=== PATIENT | male | born 1960 | race Caucasian/White ===

== ENCOUNTER 2023-01-04 21:53 | Inpatient (IN) | payer OTHER ==
[2023-01-04 22:29] VITALS: BMI 23.8
[2023-01-05 01:31] LABS: BASO % 0.3 % (0-2.0); EOS % 5.9 % (0-4.5); HEMATOCRIT 26.9 % (35.4-49); HEMOGLOBIN 8.9 GM/dL (11.7-16.9); MCH 29.2 pg (25.7-33.7); MEAN CELL VOLUME 88.4 fl (80-96); MEAN PLT VOLUME 6.7 fl (7.5-11.1); MONO % 7.3 % (3.8-10.2); NEUT % 59.5 % (42.8-82.8); PLATELET COUNT 163 10^3/uL (134-434); RBC 3.04 M/mm3 (4.00-5.60); RDW 13.3 % (11.9-15.9); WHITE BLOOD COUNT 6.2 K/mm3 (4.0-10.0)
[2023-01-05 01:43] LABS: EPI CELLS 9 /uL (0-25.1); HYALINE CASTS 1 /uL (0-3.1); PH,URINE 5.5 (5.0-8.0); URINE APPEARANCE CLEAR; URINE BACTERIA 5 /uL (0-1359); URINE BILIRUBIN NEGATIVE (NEGATIVE); URINE COLOR YELLOW; URINE GLUCOSE (UA) NEGATIVE (NEGATIVE); URINE KETONE NEGATIVE (NEGATIVE); URINE LEUK ESTERASE NEGATIVE (NEGATIVE); URINE NITRITE NEGATIVE (NEGATIVE); URINE PROTEIN 3+ (NEGATIVE); URINE RBC 47 /uL (0-23.9); URINE UROBILINOGEN 0.2 mg/dL (0.2-1.0); URINE WBC 26 /uL (0-25.8)
[2023-01-05 01:47] LABS: CHLORIDE 110 mmol/L (98-107); SODIUM 139 mmol/L (136-145)
[2023-01-05 01:49] LABS: ANION GAP 6 MMOL/L (8-16); CO2 22 mmol/L (21-32); GLUCOSE,RANDOM 92 mg/dL (74-106)
[2023-01-05 01:50] LABS: ALBUMIN 3.4 g/dl (3.4-5.0); BLOOD UREA NITROGEN 97.3 mg/dL (7-18)
[2023-01-05 01:52] LABS: SGPT/ALT 28 U/L (13-61)
[2023-01-05 01:53] LABS: SGOT/AST 16 U/L (15-37)
[2023-01-05 01:54] LABS: BILIRUBIN,TOTAL 0.6 mg/dL (0.2-1); TOT PROT 7.1 g/dl (6.4-8.2)
[2023-01-05 01:55] LABS: ALK PHOS 105 U/L (45-117)
[2023-01-05 02:15] LABS: CALCIUM 6.1 mg/dL (8.5-10.1)
[2023-01-05] MEDS ORDERED: CALCIUM CHLORIDE 10% 1 GM/10 ML *VIAL IVPB ONE (02:37)
[2023-01-05] MEDS ORDERED: ALBUTEROL SO4 0.083% IH SOL 2.5 MG/3 ML VIAL.NEB. NEB ONE ×2 (02:39→02:43)
[2023-01-05] MEDS ORDERED: CALCIUM CHLORIDE 1 GM/10 ML *DISP.SYRIN ONE (02:43)
[2023-01-05] MEDS ORDERED: CALCIUM GLUCONATE 10% - 1,000 MG/10 ML VIAL IVPB ONE (02:44)
[2023-01-05] MEDS ORDERED: CALCIUM GLUC IN NACL, ISO-OSM 1 GM/50 ML BAG IVPB ONE (02:44)
[2023-01-05] MEDS ORDERED: SODIUM ZIRCONIUM CYCLOSILICATE (LOKELMA) 5 GM PACKET ONE (02:52)
[2023-01-05] MEDS ORDERED: SODIUM ZIRCONIUM CYCLOSILICATE (LOKELMA) 5 GM PACKET PO ONE (02:55)
[2023-01-05] MEDS ORDERED: LACTATED RINGERS SOLUTION 1000 ML INFUS.BAG IV ONE (09:16)
[2023-01-05] MEDS ORDERED: SODIUM ZIRCONIUM CYCLOSILICATE (LOKELMA) 10 GM PACKET PO SCH (10:00)
[2023-01-05] MEDS ORDERED: SODIUM CHLORIDE 250 ML IV PRN (10:53)
[2023-01-05] MEDS ORDERED: LORazepam 2 MG/ML SDV VIAL IVPUSH ONE (10:56)
[2023-01-05 12:00] LABS: CHLORIDE 109 mmol/L (98-107); SODIUM 138 mmol/L (136-145)
[2023-01-05 12:02] LABS: ANION GAP 8 MMOL/L (8-16); CO2 22 mmol/L (21-32); GLUCOSE,RANDOM 89 mg/dL (74-106)
[2023-01-05 12:05] LABS: SGOT/AST 17 U/L (15-37); SGPT/ALT 23 U/L (13-61)
[2023-01-05 12:08] LABS: ALK PHOS 97 U/L (45-117); BILIRUBIN,TOTAL 0.6 mg/dL (0.2-1); TOT PROT 6.4 g/dl (6.4-8.2)
[2023-01-05 12:18] LABS: CALCIUM 6.2 mg/dL (8.5-10.1); CREATININE 12.3 mg/dL (0.55-1.3)
[2023-01-05] MEDS: HEPARIN NA (PORCINE) 5,000 UNITS/ML 1ML VIAL SQ SCH (22:16)
[2023-01-05] MEDS: LABETALOL HCL 200 MG TABLET (FP) PO SCH (22:16)
[2023-01-06] MEDS ORDERED: ACETAMINOPHEN 325 MG TABLET (FP) PO ONE (01:25)
[2023-01-06] MEDS: hydrALAZINE HCL 25 MG TABLET (FP) PO SCH ×3 (06:20→21:07)
[2023-01-06 08:56] LABS: BASO % 0.5 % (0-2.0); EOS % 4.6 % (0-4.5); HEMATOCRIT 24.5 % (35.4-49); HEMOGLOBIN 8.3 GM/dL (11.7-16.9); LYMPH % 30.2 % (8-40); MCHC 33.7 g/dl (32.0-35.9); MEAN CELL VOLUME 89.2 fl (80-96); MEAN PLT VOLUME 7.2 fl (7.5-11.1); MONO % 8.4 % (3.8-10.2); NEUT % 56.3 % (42.8-82.8); PLATELET COUNT 165 10^3/uL (134-434); RBC 2.75 M/mm3 (4.00-5.60); RDW 12.8 % (11.9-15.9); WHITE BLOOD COUNT 5.6 K/mm3 (4.0-10.0)
[2023-01-06 09:15] LABS: CHLORIDE 107 mmol/L (98-107); SODIUM 140 mmol/L (136-145)
[2023-01-06] MEDS: LABETALOL HCL 200 MG TABLET (FP) PO SCH ×2 (09:16→21:07)
[2023-01-06] MEDS: CLOPIDOGREL BISULFATE 75 MG TABLET (FP) PO SCH (09:16)
[2023-01-06] MEDS: TAMSULOSIN HCL 0.4 MG CAP PO SCH (09:16)
[2023-01-06] MEDS: HEPARIN NA (PORCINE) 5,000 UNITS/ML 1ML VIAL SQ SCH ×2 (09:16→21:07)
[2023-01-06 09:17] LABS: ALBUMIN 2.9 g/dl (3.4-5.0); ANION GAP 5 MMOL/L (8-16); CO2 27 mmol/L (21-32); GLUCOSE,RANDOM 85 mg/dL (74-106)
[2023-01-06 09:20] LABS: SGOT/AST 14 U/L (15-37); SGPT/ALT 22 U/L (13-61)
[2023-01-06 09:22] LABS: BILIRUBIN,TOTAL 0.6 mg/dL (0.2-1); TOT PROT 6.1 g/dl (6.4-8.2)
[2023-01-06 09:23] LABS: ALK PHOS 94 U/L (45-117)
[2023-01-06 09:29] LABS: BLOOD UREA NITROGEN 68.7 mg/dL (7-18); CREATININE 9.7 mg/dL (0.55-1.3)
[2023-01-06] MEDS ORDERED: amLODIPine BESYLATE 5 MG TABLET (FP) PO SCH (10:00)
[2023-01-06] MEDS: CALCIUM 250MG/VIT-D 125 UNITS 1 COMBO TABLET PO SCH (13:09)
[2023-01-06] MEDS: CALCITRIOL 0.25 MCG CAPSULE (FP) PO SCH (13:09)
[2023-01-06] MEDS ORDERED: SODIUM CHLORIDE 250 ML IV PRN (13:46)
[2023-01-06] MEDS ORDERED: EPOETIN ALFA-EPBX 3,000 UNIT/ML VIAL SQ ONE (14:00)
[2023-01-06 17:32] LABS: IRON SERUM 54 ug/dL (50-175)
[2023-01-06 17:33] LABS: TOTAL IRON BINDING CAPACITY 136 ug/dL (250-450)
[2023-01-07] MEDS: hydrALAZINE HCL 25 MG TABLET (FP) PO SCH ×3 (06:00→21:44)
[2023-01-07] MEDS: CALCIUM 250MG/VIT-D 125 UNITS 1 COMBO TABLET PO SCH ×4 (06:00→21:44)
[2023-01-07] MEDS: TAMSULOSIN HCL 0.4 MG CAP PO SCH (08:58)
[2023-01-07] MEDS: LABETALOL HCL 200 MG TABLET (FP) PO SCH ×2 (09:44→21:44)
[2023-01-07] MEDS: CALCITRIOL 0.25 MCG CAPSULE (FP) PO SCH (09:44)
[2023-01-07] MEDS: CLOPIDOGREL BISULFATE 75 MG TABLET (FP) PO SCH (09:45)
[2023-01-07] MEDS: HEPARIN NA (PORCINE) 5,000 UNITS/ML 1ML VIAL SQ SCH ×2 (09:45→21:44)
[2023-01-07] MEDS ORDERED: CALCITRIOL 0.25 MCG CAPSULE (FP) PO SCH (11:45)
[2023-01-08] MEDS: hydrALAZINE HCL 25 MG TABLET (FP) PO SCH ×3 (06:26→21:02)
[2023-01-08] MEDS: CALCIUM 250MG/VIT-D 125 UNITS 1 COMBO TABLET PO SCH ×3 (06:26→21:01)
[2023-01-08 07:36] LABS: BASO % 0.6 % (0-2.0); EOS % 6.7 % (0-4.5); HEMATOCRIT 23.5 % (35.4-49); HEMOGLOBIN 8.1 GM/dL (11.7-16.9); LYMPH % 26.1 % (8-40); MCH 30.1 pg (25.7-33.7); MCHC 34.4 g/dl (32.0-35.9); MEAN CELL VOLUME 87.6 fl (80-96); MEAN PLT VOLUME 6.9 fl (7.5-11.1); MONO % 8.5 % (3.8-10.2); NEUT % 58.1 % (42.8-82.8); PLATELET COUNT 149 10^3/uL (134-434); RBC 2.68 M/mm3 (4.00-5.60); RDW 12.5 % (11.9-15.9); WHITE BLOOD COUNT 6.7 K/mm3 (4.0-10.0)
[2023-01-08 07:57] LABS: CHLORIDE 106 mmol/L (98-107); SODIUM 140 mmol/L (136-145)
[2023-01-08 07:59] LABS: ANION GAP 8 MMOL/L (8-16); BLOOD UREA NITROGEN 52.8 mg/dL (7-18); CO2 27 mmol/L (21-32); GLUCOSE,RANDOM 89 mg/dL (74-106)
[2023-01-08 08:17] LABS: CALCIUM 5.9 mg/dL (8.5-10.1); CREATININE 8.8 mg/dL (0.55-1.3)
[2023-01-08] MEDS: TAMSULOSIN HCL 0.4 MG CAP PO SCH (08:44)
[2023-01-08] MEDS: HEPARIN NA (PORCINE) 5,000 UNITS/ML 1ML VIAL SQ SCH ×2 (09:35→21:02)
[2023-01-08] MEDS: CLOPIDOGREL BISULFATE 75 MG TABLET (FP) PO SCH (09:35)
[2023-01-08] MEDS: LABETALOL HCL 200 MG TABLET (FP) PO SCH ×2 (09:36→21:01)
[2023-01-08] MEDS ORDERED: ACETAMINOPHEN 325 MG TABLET (FP) PO ONE (10:57)
[2023-01-08] MEDS: CALCITRIOL 0.25 MCG CAPSULE (FP) PO SCH (21:05)
[2023-01-09] MEDS: hydrALAZINE HCL 25 MG TABLET (FP) PO SCH ×3 (05:58→21:01)
[2023-01-09] MEDS: CALCIUM 250MG/VIT-D 125 UNITS 1 COMBO TABLET PO SCH ×3 (05:59→21:01)
[2023-01-09] MEDS ORDERED: EPOETIN ALFA-EPBX 10,000 UNIT/ML VIAL IVPUSH ONE (09:00)
[2023-01-09] MEDS: TAMSULOSIN HCL 0.4 MG CAP PO SCH (09:20)
[2023-01-09] MEDS: CALCITRIOL 0.25 MCG CAPSULE (FP) PO SCH ×2 (09:20→21:00)
[2023-01-09] MEDS: CLOPIDOGREL BISULFATE 75 MG TABLET (FP) PO SCH (09:20)
[2023-01-09] MEDS: HEPARIN NA (PORCINE) 5,000 UNITS/ML 1ML VIAL SQ SCH ×2 (09:20→21:01)
[2023-01-09] MEDS: LABETALOL HCL 200 MG TABLET (FP) PO SCH ×2 (09:20→21:01)
[2023-01-09] MEDS ORDERED: IRON SUCROSE INJECTION 100 MG in SODIUM CHLORIDE 95 ML IVPB ONE (10:00)
[2023-01-09 11:22] LABS: BASO % 0.5 % (0-2.0); EOS % 6.9 % (0-4.5); HEMOGLOBIN 8.1 GM/dL (11.7-16.9); LYMPH % 21.6 % (8-40); MCH 29.8 pg (25.7-33.7); MCHC 33.8 g/dl (32.0-35.9); MEAN CELL VOLUME 88.2 fl (80-96); MEAN PLT VOLUME 7.1 fl (7.5-11.1); MONO % 7.2 % (3.8-10.2); NEUT % 63.8 % (42.8-82.8); PLATELET COUNT 169 10^3/uL (134-434); RBC 2.72 M/mm3 (4.00-5.60); RDW 12.8 % (11.9-15.9); WHITE BLOOD COUNT 6.6 K/mm3 (4.0-10.0)
[2023-01-09 11:37] LABS: CHLORIDE 105 mmol/L (98-107); SODIUM 142 mmol/L (136-145)
[2023-01-09 11:40] LABS: ALBUMIN 2.9 g/dl (3.4-5.0); ANION GAP 12 MMOL/L (8-16); BLOOD UREA NITROGEN 62.8 mg/dL (7-18); CO2 24 mmol/L (21-32); GLUCOSE,RANDOM 105 mg/dL (74-106)
[2023-01-09 11:43] LABS: PHOSPHOROUS 4.1 mg/dL (2.5-4.9); SGOT/AST 32 U/L (15-37); SGPT/ALT 37 U/L (13-61)
[2023-01-09 11:45] LABS: BILIRUBIN,TOTAL 0.5 mg/dL (0.2-1); TOT PROT 6.1 g/dl (6.4-8.2)
[2023-01-09 11:46] LABS: ALK PHOS 89 U/L (45-117)
[2023-01-09 11:49] LABS: CALCIUM 6.8 mg/dL (8.5-10.1)
[2023-01-09] MEDS ORDERED: CALCIUM 250MG/VIT-D 125 UNITS 1 COMBO TABLET PO SCH (15:15)
[2023-01-10] MEDS: hydrALAZINE HCL 25 MG TABLET (FP) PO SCH ×3 (05:41→21:09)
[2023-01-10] MEDS: CALCIUM 250MG/VIT-D 125 UNITS 1 COMBO TABLET PO SCH ×3 (05:41→21:08)
[2023-01-10] MEDS: TAMSULOSIN HCL 0.4 MG CAP PO SCH (08:35)
[2023-01-10] MEDS: CLOPIDOGREL BISULFATE 75 MG TABLET (FP) PO SCH (09:05)
[2023-01-10] MEDS: HEPARIN NA (PORCINE) 5,000 UNITS/ML 1ML VIAL SQ SCH ×2 (09:05→21:09)
[2023-01-10] MEDS: CALCITRIOL 0.25 MCG CAPSULE (FP) PO SCH ×2 (09:08→21:09)
[2023-01-10] MEDS: LABETALOL HCL 200 MG TABLET (FP) PO SCH ×2 (09:09→21:08)
[2023-01-11] MEDS ORDERED: HEPARIN NA (PORCINE) 1,000 UNITS/ML 10ML M-D VIAL SQ ONE
[2023-01-11] MEDS: CALCIUM 250MG/VIT-D 125 UNITS 1 COMBO TABLET PO SCH ×4 (06:02→21:21)
[2023-01-11] MEDS: hydrALAZINE HCL 25 MG TABLET (FP) PO SCH ×4 (06:02→21:21)
[2023-01-11] MEDS: TAMSULOSIN HCL 0.4 MG CAP PO SCH (08:35)
[2023-01-11] MEDS: CALCITRIOL 0.25 MCG CAPSULE (FP) PO SCH ×2 (09:08→21:21)
[2023-01-11] MEDS: CLOPIDOGREL BISULFATE 75 MG TABLET (FP) PO SCH (09:08)
[2023-01-11] MEDS: HEPARIN NA (PORCINE) 5,000 UNITS/ML 1ML VIAL SQ SCH ×2 (09:08→21:21)
[2023-01-11] MEDS: LABETALOL HCL 200 MG TABLET (FP) PO SCH ×2 (09:08→21:21)
[2023-01-11] MEDS ORDERED: LIDOCAINE HCL 1%, 10 MG/ML (10ML VIAL) MDV ONE (11:23)
[2023-01-11] MEDS ORDERED: HEPARIN NA (PORCINE) 5,000 UNITS/ML 1ML VIAL ONE (11:23)
[2023-01-11] MEDS ORDERED: MIDAZOLAM HCL 2 MG/2 ML SINGLE DOSE VIAL ONE (12:54)
[2023-01-11] MEDS ORDERED: ceFAZolin SODIUM 1 GM VIAL IVPB ONE (13:30)
[2023-01-11] MEDS ORDERED: ceFAZolin SODIUM 1 GM VIAL ONE (13:30)
[2023-01-11] MEDS ORDERED: LIDOCAINE HCL 1%, 10 MG/ML (20ML VIAL) NR ONE ×2 (13:34)
[2023-01-11] MEDS ORDERED: HEPARIN NA (PORCINE) 5,000 UNITS/ML 1ML VIAL SQ ONE ×2 (13:35)
[2023-01-11] MEDS ORDERED: ONDANSETRON 4 MG/2 ML VIAL IVPUSH PRN (13:54)
[2023-01-11] MEDS ORDERED: SODIUM CHLORIDE 1,000 ML IV SCH (14:00)
[2023-01-11] MEDS ORDERED: SODIUM CHLORIDE 250 ML IV PRN (15:42)
[2023-01-11] MEDS ORDERED: EPOETIN ALFA-EPBX 4,000 UNIT/ML VIAL SQ ONE (16:15)
[2023-01-11 16:36] LABS: HEMATOCRIT 25.2 % (35.4-49); HEMOGLOBIN 8.4 GM/dL (11.7-16.9); MCH 29.4 pg (25.7-33.7); MCHC 33.2 g/dl (32.0-35.9); MEAN CELL VOLUME 88.7 fl (80-96); MEAN PLT VOLUME 7.2 fl (7.5-11.1); PLATELET COUNT 206 10^3/uL (134-434); RBC 2.84 M/mm3 (4.00-5.60); RDW 13.2 % (11.9-15.9); WHITE BLOOD COUNT 6.9 K/mm3 (4.0-10.0)
[2023-01-11 16:58] LABS: CHLORIDE 107 mmol/L (98-107); SODIUM 141 mmol/L (136-145)
[2023-01-11 16:59] LABS: CALCIUM 7.6 mg/dL (8.5-10.1)
[2023-01-11 17:00] LABS: ANION GAP 6 MMOL/L (8-16); BLOOD UREA NITROGEN 42.7 mg/dL (7-18); CO2 28 mmol/L (21-32); GLUCOSE,RANDOM 140 mg/dL (74-106)
[2023-01-11 17:05] LABS: CREATININE 8.4 mg/dL (0.55-1.3)
[2023-01-12] MEDS: CALCIUM 250MG/VIT-D 125 UNITS 1 COMBO TABLET PO SCH ×3 (06:07→22:02)
[2023-01-12] MEDS: hydrALAZINE HCL 25 MG TABLET (FP) PO SCH ×3 (06:07→22:01)
[2023-01-12] MEDS: CALCITRIOL 0.25 MCG CAPSULE (FP) PO SCH ×2 (09:01→22:02)
[2023-01-12] MEDS: HEPARIN NA (PORCINE) 5,000 UNITS/ML 1ML VIAL SQ SCH ×2 (09:01→22:01)
[2023-01-12] MEDS: LABETALOL HCL 200 MG TABLET (FP) PO SCH ×2 (09:01→22:02)
[2023-01-12] MEDS: TAMSULOSIN HCL 0.4 MG CAP PO SCH (09:01)
[2023-01-12] MEDS: CLOPIDOGREL BISULFATE 75 MG TABLET (FP) PO SCH (09:07)
[2023-01-12] MEDS ORDERED: ACETAMINOPHEN 325 MG TABLET (FP) PO PRN (09:34)
[2023-01-12] MEDS ORDERED: SODIUM CHLORIDE 250 ML IV PRN (09:41)
[2023-01-13] MEDS: hydrALAZINE HCL 25 MG TABLET (FP) PO SCH ×2 (06:20→14:31)
[2023-01-13] MEDS: CALCIUM 250MG/VIT-D 125 UNITS 1 COMBO TABLET PO SCH ×2 (06:20→14:31)
[2023-01-13 06:42] VITALS: RESP 18
[2023-01-13] MEDS ORDERED: EPOETIN ALFA-EPBX 3,000 UNIT/ML VIAL IVPUSH ONE (07:30)
[2023-01-13] MEDS: TAMSULOSIN HCL 0.4 MG CAP PO SCH (07:58)
[2023-01-13] MEDS: HEPARIN NA (PORCINE) 5,000 UNITS/ML 1ML VIAL SQ SCH (12:05)
[2023-01-13] MEDS: CLOPIDOGREL BISULFATE 75 MG TABLET (FP) PO SCH (12:05)
[2023-01-13] MEDS: LABETALOL HCL 200 MG TABLET (FP) PO SCH (12:05)
[2023-01-13] MEDS: CALCITRIOL 0.25 MCG CAPSULE (FP) PO SCH (12:06)
[2023-01-13 14:49] VITALS: BP 143/93; PULSE 86; TEMP 98.6
== END 2023-01-13 15:15 | disposition home or self-care (01) | DRG 470 ==
LOC: JER 21:53 → JERBED 01-05 01:54 → UNDOADMOB 01-05 01:54 → INTOOBSV 01-05 01:54 → JERBED 01-05 10:36 → OBSVTOIN 01-05 14:57 → J4S 01-05 19:24
PROVIDERS: ADMIT Internal Medicine; ATTEND Internal Medicine
PROC: 5A1D70Z Performance of Urinary Filtration, Intermittent, Less than 6 Hours Per Day (ICD-10-PCS; principal; 2023-01-09)
PROC: 5A1D70Z Performance of Urinary Filtration, Intermittent, Less than 6 Hours Per Day (ICD-10-PCS; 2023-01-11)
PROC: 0JH63XZ Insertion of Tunneled Vascular Access Device into Chest Subcutaneous Tissue and Fascia, Percutaneous Approach (ICD-10-PCS; 2023-01-11)
PROC: 02H633Z Insertion of Infusion Device into Right Atrium, Percutaneous Approach (ICD-10-PCS; 2023-01-11)
PROC: B518ZZA Fluoroscopy of Superior Vena Cava, Guidance (ICD-10-PCS; 2023-01-11)
PROC: 5A1D70Z Performance of Urinary Filtration, Intermittent, Less than 6 Hours Per Day (ICD-10-PCS; 2023-01-13)
DX: I12.0 Hypertensive chronic kidney disease with stage 5 chronic kidney disease or end stage renal disease (principal); E87.5 Hyperkalemia; D63.8 Anemia in other chronic diseases classified elsewhere; I45.10 Unspecified right bundle-branch block; N17.9 Acute kidney failure, unspecified; E83.51 Hypocalcemia; I77.810 Thoracic aortic ectasia; R07.89 Other chest pain; F41.8 Other specified anxiety disorders; N40.0 Benign prostatic hyperplasia without lower urinary tract symptoms; N18.6 End stage renal disease; Z99.2 Dependence on renal dialysis
CPT/HCPCS: 36415; 71045-TC-FY; 71250-TC; 76000-TC-FY; 80048; 80053; 81003; 82728; 82962; 83540; 83550; 84100; 85025; 85027; 86803; 87086; 87340; 87517; 93005; 93010; 93306-TC; 94760; 99285-25; C1750; C9803-CS; G0378; J1644; J1756; Q5106; U0003; U0005